=== PATIENT | male | born 1955 | race Caucasian/White ===

== ENCOUNTER 2018-11-01 09:03 | Emergency (ER) | payer OTHER ==
[~2018-11-01] VITALS: Ht 165.1 cm; Wt 68.0 kg
[2018-11-01 09:05] VITALS: Ht 165.1 cm; Wt 68.0 kg
[2018-11-01 10:23] LABS: ALKALINE PHOSPHATASE 80 U/L (46-116); ALT/SGPT 25 U/L (16-63); AST/SGOT 17 U/L (15-37); CALCIUM 8.8 mg/dL (8.5-10.1); CARBON DIOXIDE 26.1 mmol/L (21-32); CHLORIDE SERUM 101 mmol/L (98-107); CREATININE SERUM 1.1 mg/dL (0.7-1.3); GFR1 > 60 mL/min; GLUCOSE SERUM 145 mg/dL (74-106); SODIUM SERUM 133 mmol/L (136-145); TOTAL PROTEIN, SERUM 6.8 g/dL (6.4-8.2)
[2018-11-01 10:27] LABS: BASOPHIL % 0.4 % (0-2); PLATELET COUNT 258 x10^3mcL (130-400)
[2018-11-01 10:28] LABS: ALBUMIN 3.3 g/dL (3.4-5.0); POTASSIUM SERUM 6.3 mmol/L (3.5-5.1)
[2018-11-01 10:33] LABS: RED CELL DISTRIBUTION WIDTH 18.9 % (11.5-14.5)
[2018-11-01 12:40] VITALS: BP 154/81
== END 2018-11-01 13:26 | disposition home or self-care (01) ==
LOC: ED 09:03
PROVIDERS: Emergency Medicine
DX: E11.649 Type 2 diabetes mellitus with hypoglycemia without coma (principal); G93.41 Metabolic encephalopathy; E87.5 Hyperkalemia; I10 Essential (primary) hypertension; E78.00 Pure hypercholesterolemia, unspecified; I45.2 Bifascicular block; Z95.5 Presence of coronary angioplasty implant and graft; Z90.89 Acquired absence of other organs; Z98.890 Other specified postprocedural states; Z86.73 Personal history of transient ischemic attack (TIA), and cerebral infarction without residual deficits; Z88.0 Allergy status to penicillin; Z88.2 Allergy status to sulfonamides
CPT/HCPCS: 82962; J1815; J3490; Q0092

== ENCOUNTER 2019-10-21 21:47 | Inpatient (IN) | payer OTHER ==
[~2019-10-21] VITALS: Ht 160 cm; Wt 66.7 kg
[2019-10-21 23:22] LABS: PLATELET COUNT 202 x10^3mcL (130-400)
[2019-10-21 23:34] LABS: RED CELL DISTRIBUTION WIDTH 18.8 % (11.5-14.5)
[2019-10-21 23:35] LABS: BASOPHIL % 0 % (0-2)
[2019-10-21 23:43] LABS: ALBUMIN 3.5 g/dL (3.4-5.0); ALKALINE PHOSPHATASE 58 U/L (46-116); ALT/SGPT 23 U/L (16-63); AST/SGOT 14 U/L (15-37); BILIRUBIN TOTAL 0.5 mg/dL (0.20-1.00); CALCIUM 9.1 mg/dL (8.5-10.1); CARBON DIOXIDE 24.3 mmol/L (21-32); CHLORIDE SERUM 101 mmol/L (98-107); CREATININE SERUM 0.9 mg/dL (0.7-1.3); GFR1 > 60 mL/min; GLUCOSE SERUM 216 mg/dL (74-106); POTASSIUM SERUM 4.6 mmol/L (3.5-5.1); SODIUM SERUM 136 mmol/L (136-145); TOTAL PROTEIN, SERUM 6.2 g/dL (6.4-8.2)
[2019-10-21] MEDS ORDERED: EAR WAX DROPS15 ML AS (23:48)
[2019-10-21] MEDS ORDERED: LIPITOR40 MG PO (23:50)
[2019-10-21] MEDS ORDERED: PLAVIX75 M1 PO (23:50)
[2019-10-21] MEDS ORDERED: COLACE100 MG PO (23:51)
[2019-10-21] MEDS ORDERED: ISOSORBIDE DINI30 M2 PO (23:52)
[2019-10-21] MEDS ORDERED: ZESTRIL5 MG PO (23:52)
[2019-10-21] MEDS ORDERED: LOPRESSOR50 M1 PO (23:53)
[2019-10-21] MEDS ORDERED: METFORMIN HCL500 M4 PO (23:53)
[2019-10-21] MEDS ORDERED: APAP325 MG PO (23:54)
[2019-10-21] MEDS ORDERED: LANTI SQ (23:54)
[2019-10-21] MEDS ORDERED: [UNRECOGNIZED DRUG - CODE] PO (23:55)
[2019-10-22] VITALS (11 sets, daily range): BP systolic 91–128; BP diastolic 30–72; Ht 160 cm; Wt 66.7 kg
[2019-10-22 03:15] LABS: CHOLESTEROL/HDL RATIO 3.7
[2019-10-22 10:20] LABS: microscopic required? NO
[2019-10-22 10:33] LABS: BASOPHIL % 0.4 % (0-2)
[2019-10-22 10:55] LABS: PLATELET COUNT 166 x10^3mcL (130-400); RED CELL DISTRIBUTION WIDTH 18.7 % (11.5-14.5)
[2019-10-22 10:58] LABS: rbc morphology (normal/abnorm) NORMAL (NORMAL)
[2019-10-22 11:46] LABS: AMPHETAMINE QUAL UR NONE DETECTED (See below)
[2019-10-22 12:34] LABS: TOTAL IRON BINDING CAPACITY 309 ug/dL (250-450)
[2019-10-22 12:37] LABS: IRON 22 ug/dL (65-170)
[2019-10-22 13:09] LABS: UA SPECIFIC GRAVITY 1.015 (1.005-1.035); urine erythrocyte NEGATIVE (NEGATIVE)
[2019-10-22 14:42] LABS: CALCIUM 8.1 mg/dL (8.5-10.1); CARBON DIOXIDE 26.7 mmol/L (21-32); CHLORIDE SERUM 107 mmol/L (98-107); CREATININE SERUM 0.8 mg/dL (0.7-1.3); GFR1 > 60 mL/min; GLUCOSE SERUM 196 mg/dL (74-106); SODIUM SERUM 140 mmol/L (136-145)
[2019-10-22 18:04] LABS: schistocyte (helmet cell) 2+
[2019-10-22 18:05] LABS: rbc morphology (normal/abnorm) ABNORMAL (NORMAL)
[2019-10-23 06:02] VITALS: BP 116/61
[2019-10-23 07:28] VITALS: BP 138/62
[2019-10-23 07:29] LABS: BASOPHIL % 0.5 % (0-2); PLATELET COUNT 140 x10^3mcL (130-400)
[2019-10-23 07:46] LABS: RED CELL DISTRIBUTION WIDTH 17.2 % (11.5-14.5)
[2019-10-23 08:36] LABS: ALKALINE PHOSPHATASE 51 U/L (46-116); ALT/SGPT 24 U/L (16-63); AST/SGOT 12 U/L (15-37); BILIRUBIN TOTAL 0.4 mg/dL (0.20-1.00); CALCIUM 8.3 mg/dL (8.5-10.1); CHLORIDE SERUM 110 mmol/L (98-107); CREATININE SERUM 0.6 mg/dL (0.7-1.3); GFR1 > 60 mL/min; GLUCOSE SERUM 123 mg/dL (74-106); SODIUM SERUM 142 mmol/L (136-145)
[2019-10-23 08:37] LABS: ALBUMIN 2.9 g/dL (3.4-5.0); TOTAL PROTEIN, SERUM 5.5 g/dL (6.4-8.2)
[2019-10-23 10:28] LABS: ERYTHROCYTE SED RATE 8 mm/hr (0-20)
[2019-10-23 11:24] VITALS: BP 118/59
[2019-10-23 13:00] VITALS: BP 118/59
[2019-10-24 09:05] LABS: RHEUMATOID ARTHRITIS FACTOR <10.0 IU/mL (0.0-13.9)
[2019-10-26 04:05] LABS: RAPID PLASMA REAGIN Non Reactive (Non Reactive)
== END 2019-10-23 13:17 | disposition other institution (70) | DRG 379 ==
LOC: ED 21:47 → DU 23:46
PROVIDERS: Emergency Medicine; Internal Medicine Cardiovascular Disease; Internal Medicine Gastroenterology; ADMIT Internal Medicine
PROC: 0W3P8ZZ Control Bleeding in Gastrointestinal Tract, Via Natural or Artificial Opening Endoscopic (ICD-10-PCS; principal; 2019-10-22 10:00)
PROC: 0DB68ZX Excision of Stomach, Via Natural or Artificial Opening Endoscopic, Diagnostic (ICD-10-PCS; 2019-10-22 10:00)
PROC: 30233N1 Transfusion of Nonautologous Red Blood Cells into Peripheral Vein, Percutaneous Approach (ICD-10-PCS; 2019-10-22 10:00)
DX: K25.4 Chronic or unspecified gastric ulcer with hemorrhage (principal); I11.0 Hypertensive heart disease with heart failure; E11.9 Type 2 diabetes mellitus without complications; Z88.0 Allergy status to penicillin; Z88.2 Allergy status to sulfonamides; Z86.73 Personal history of transient ischemic attack (TIA), and cerebral infarction without residual deficits; Z95.5 Presence of coronary angioplasty implant and graft; I25.2 Old myocardial infarction; Z90.49 Acquired absence of other specified parts of digestive tract; Z79.84 Long term (current) use of oral hypoglycemic drugs
CPT/HCPCS: 43235; 82962; 83880; 86431; C9113; G0378; J1200; J1610; J2250; J2310; J2916; J3010; J3490; J7042; J7050; J7070; P9016; Q0092